=== PATIENT | male | born 1950 | race American Indian/Alaskan Native ===

== ENCOUNTER 2018-01-11 07:23 | Day surgery (SDC) | payer BC, MEDICARE ==
[2018-01-11 07:58] VITALS: BMI 26.7
[2018-01-11] MEDS ORDERED: Lactated Ringer's 1,000 ML IV ONE (08:59)
[2018-01-11] MEDS ORDERED: Propofol 10 mg/ml Inj (20 ML) ONE (09:04)
--- NOTE | 2018-01-11 09:26 | CP.SDSHP ---
Same Day Surgery H & P - History Proposed Procedure: colonoscopy screening Pre-Op Diagnosis: screening for colon cancer - Previous Medical/Surgical History Comments: Denies any PMH or PSH - Allergies Allergies: Allergies No Known Allergies Allergy (Verified 01/11/18 07:58) - Physical Exam Vital Signs: Vital Signs 01/11/18 07:55 Temperature 97.9 F Pulse Rate 62 Respiratory 19 Rate Blood Pressure 129/67 O2 Sat by Pulse 100 Oximetry Mental Status: Alert & Oriented x3 Neuro: WNL Heart: WNL Lungs: WNL GI: WNL - Impression Impression: screening for colon cancer Pt. Evaluated Today:Candidate for Anesthesia & Procedure: Yes - Date & Time Date: 01/11/18 Time: 09:25 Short Stay Discharge - Short Stay Discharge Admitting Diagnosis/Reason for Visit: ENCOUNTER FOR SCREENING Disposition: HOME/ ROUTINE
[2018-01-11 09:56] VITALS: TEMP 98.2
[2018-01-11 10:23] VITALS: O2SAT 100
[2018-01-11 10:31] VITALS: BP 126/71; PULSE 77; RESP 13
== END 2018-01-11 11:00 | disposition home or self-care (01) ==
LOC: C.ENDO 07:23
PROVIDERS: ATTEND Internal Medicine Gastroenterology
DX: Z12.11 Encounter for screening for malignant neoplasm of colon (principal); D12.4 Benign neoplasm of descending colon
CPT/HCPCS: 45385; 88305; J2704; J7120